=== PATIENT | female | born 1935 | race American Indian/Alaskan Native ===

== ENCOUNTER 2016-11-25 09:53 | Outpatient (CLI) | payer MEDICARE ==
--- NOTE | 2016-11-25 12:50 | Ultrasound Report ---
Renal ultrasound: The right renal length is approximately 9.7 cm. In the superior pole there is a focal echodensity measuring 3 mm that may represent a calculus. There is no shadowing. The left renal length is 9.5 cm. 3 echolucency is identified consistent with cysts with the largest measuring 2.5 cm. There is no evidence of obstructive uropathy in either kidney. The echogenicity of the kidneys is somewhat difficult to interpret but is grossly normal. Neither kidney is optimally visualized. Imaging of the urinary bladder showed no obvious bladder and according to the technologist the patient has a urostomy. Impression: 1. Small nonobstructing right renal calculus. 2. Multiple left renal cysts.
== END 2016-11-25 09:54 | disposition home or self-care (01) ==
LOC: US 09:53
PROVIDERS: ATTEND Internal Medicine Nephrology
DX: N28.1 Cyst of kidney, acquired (principal); N20.0 Calculus of kidney
CPT/HCPCS: 76770